=== PATIENT | female | born 1975 | race Caucasian/White ===

== ENCOUNTER 2022-02-24 07:04 | Emergency (ER) | payer BC ==
[2022-02-24 07:13] VITALS: TEMP 98.6
[2022-02-24] MEDS ORDERED: ACETAMINOPHEN 1000 MG/100 ML BAG IVPB ONE (07:26)
[2022-02-24] MEDS ORDERED: FAMOTIDINE 20 MG/50 ML IVPB 20 MG/50 ML MG IVPB ONE ×2 (07:26→07:41)
[2022-02-24] MEDS ORDERED: SODIUM CHLORIDE 0.9% 1000 ML INFUS.BAG IV ONE (07:26)
[2022-02-24] MEDS ORDERED: ACETAMINOPHEN INJECTION 100 ML IVPB ONE (07:41)
[2022-02-24] MEDS ORDERED: ALBUTEROL SO4 2.5/IPRATROPIUM 0.5 INH SOL 3 ML VIAL.NEB. NEB ONE ×2 (08:03→08:10)
[2022-02-24 08:23] LABS: HEMATOCRIT 36.5 % (32.4-45.2); HEMOGLOBIN 12.4 G/dL (10.7-15.3); MCH 29.7 pg (25.7-33.7); MCHC 34.1 g/dl (32.0-36.0); MEAN CELL VOLUME 87.3 fl (80-96); MEAN PLT VOLUME 10.6 fl (7.5-11.1); PLATELET COUNT 166.2 10^3/uL (134-434); RBC 4.18 10^6/uL (3.60-5.2); RDW 14.3 % (11.6-15.6); WHITE BLOOD COUNT 5.2 10^3/uL (4.0-10.8)
[2022-02-24 08:28] LABS: ALBUMIN 3.7 g/dl (3.4-5.0); BILIRUBIN,TOTAL 0.8 mg/dl (0.2-1); CALCIUM 9.3 mg/dl (8.5-10); CREATININE 0.6 mg/dl (0.55-1.3); TOT PROT 6.7 g/dl (6.4-8.2)
[2022-02-24] MEDS ORDERED: DOXYCYCLINE HYCLATE 100 MG CAPSULE PO ONE ×2 (10:44→11:02)
[2022-02-24 11:05] VITALS: BP 109/62; PULSE 79
== END 2022-02-24 11:15 | disposition home or self-care (01) ==
LOC: FER 07:04
PROC: 3E0333Z Introduction of Anti-inflammatory into Peripheral Vein, Percutaneous Approach (ICD-10-PCS; principal; 2022-02-24)
PROC: 3E033GC Introduction of Other Therapeutic Substance into Peripheral Vein, Percutaneous Approach (ICD-10-PCS; 2022-02-24)
PROC: 3E0F7GC Introduction of Other Therapeutic Substance into Respiratory Tract, Via Natural or Artificial Opening (ICD-10-PCS; 2022-02-24)
DX: J18.9 Pneumonia, unspecified organism (principal)
CPT/HCPCS: 0241U-QW; 36415; 71045-TC-FY; 71275-TC; 73030-TC-LT-FY; 76705-TC; 80053; 83690; 84484; 85027; 93005; 99285-25; Q9967